=== PATIENT | male | born 1955 | race Caucasian/White ===

== ENCOUNTER 2017-06-24 06:47 | Day surgery (SDC) | payer BC ==
[2017-06-23 13:11] LABS: BASOPHILS % (AUTO) 0.3 % (0-1); EOSINOPHILS # (AUTO) 0.1 X10'3 (0-0.9); EOSINOPHILS % (AUTO) 1.3 % (0-6); HEMATOCRIT 41.8 % (42.0-52.0); HEMOGLOBIN 13.9 g/dl (14.0-17.9); LYMPHOCYTES # (AUTO) 1.9 X10'3 (1.1-4.8); LYMPHOCYTES % (AUTO) 21.1 % (21-51); MEAN CORPUSCULAR HEMOGLOBIN 27.9 PG (27.0-31.0); MEAN CORPUSCULAR HGB CONC 33.3 % (33.0-36.5); MEAN CORPUSCULAR VOLUME 83.6 FL (78-98); MEAN PLATELET VOLUME 8.7 FL (7.4-10.4); MONOCYTES # (AUTO) 0.6 X10'3 (0-0.9); MONOCYTES % (AUTO) 6.5 % (2-12); NEUTROPHILS # (AUTO) 6.3 X10'3 (1.8-7.7); NEUTROPHILS % (AUTO) 70.8 % (42-75); PLATELET COUNT 163 X10'3 (140-440); RED CELL DISTRIBUTION WIDTH 17.1 % (11.5-14.5); WHITE BLOOD COUNT 8.9 X10'3 (4.5-11.0)
[2017-06-23 13:23] LABS: PARTIAL THROMBOPLASTIN TIME 28 SECONDS (22-32); PROTHROMBIN TIME 10.8 SECONDS (9.0-12.0)
[2017-06-23 13:27] LABS: ANION GAP 9 (8-16); BILIRUBIN,TOTAL 1.3 MG/DL (0.1-1.0); BLOOD UREA NITROGEN 22 MG/DL (7-18); BUN/CREATININE RATIO 22.2 (5.4-32.0); CALCIUM 9.4 MG/DL (8.5-10.1); CHLORIDE 106 MMOL/L (99-107); CREATININE 0.99 MG/DL (0.60-1.10); GLUCOSE 118 MG/DL (70-104); POTASSIUM 4.3 MMOL/L (3.5-5.1); SODIUM 142 MMOL/L (135-145); TOTAL CARBON DIOXIDE 27.3 MMOL/L (24-32); eGFR 77 ML/MIN
[2017-06-23 13:28] LABS: ALANINE AMINOTRANSFERASE 40 U/L (12-78); ALBUMIN 3.9 G/DL (3.4-5.0); ALKALINE PHOSPHATASE 102 IU/L (46-116); ASPARTATE AMINO TRANSFERASE 14 U/L (10-37)
[2017-06-24] VITALS (12 sets, daily range): BP systolic 127–163; BP diastolic 64–92
[~2017-06-24] VITALS: Ht 188 cm; Wt 162.7 kg
[2017-06-24] MEDS ORDERED: dextrose ORAL solution 15 GM/59 ML bottle PO PRN ×2 (07:10)
[2017-06-24] MEDS ORDERED: LORazepam 0.5 MG tablet PO PRN (07:10)
[2017-06-24] MEDS ORDERED: normal saline 1000ml 1,000 ML IV SCH (07:10)
[2017-06-24] MEDS ORDERED: diphenhydrAMINE 25mg capsule PO PRN (07:10)
[2017-06-24] MEDS ORDERED: nitroGLYCERIN 0.4mg SUBLingual tab SL PRN (07:10)
[2017-06-24] MEDS ORDERED: dextrose 50%-water 50ml dispensing syringe IV PRN ×2 (07:10)
[2017-06-24] MEDS ORDERED: insulin Lispro (HumaLOG) vial - multi-dose SQ SCH (07:10)
[2017-06-24] MEDS ORDERED: glucagon, human recombinant 1mg kit SUBCUT PRN (07:10)
[2017-06-24] MEDS ORDERED: MESSAGE TO PHARMACY PO ONE (07:10)
[2017-06-24] MEDS ORDERED: PIOG15TA8 PO (09:19)
[2017-06-24] MEDS ORDERED: ATOR10TA87 PO (09:19)
[2017-06-24] MEDS ORDERED: METF500T PO (09:19)
[2017-06-24] MEDS ORDERED: LISI-600 PO (09:19)
[2017-06-24] MEDS ORDERED: AMLO5TAB PO (09:19)
[2017-06-24] MEDS ORDERED: LIDOcaine 1%/PF (10mg/ml) 5ml vial ONE ×2 (12:08→12:48)
[2017-06-24] MEDS ORDERED: iohexol 350MG/ML 100ml bottle IV ONE (12:08)
[2017-06-24] MEDS ORDERED: iohexol 350 MG/ML 50ML vial IV ONE (12:08)
[2017-06-24] MEDS ORDERED: proCHLORperazine 10 MG/2 ml inj ONE (12:36)
[2017-06-24] MEDS ORDERED: fentaNYL/PF 50MCG/1 ML 2ML syringe ONE ×2 (12:37→13:00)
[2017-06-24] MEDS ORDERED: midazolam 2 mg/2 ml injection ONE ×2 (12:37→13:00)
[2017-06-24] MEDS ORDERED: furosemide 40mg/4ml inj ONE (13:01)
[2017-06-24] MEDS ORDERED: enalaprilat dihydrate 2.5mg/2ml vial IV ONE (13:12)
[2017-06-24] MEDS ORDERED: OXAZEpam 15mg capsule PO PRN (15:05)
[2017-06-24] MEDS ORDERED: HYDROcodone/acetaminophen 10/325mg tab PO PRN (15:05)
[2017-06-24] MEDS ORDERED: acetaminophen 325mg tablet PO PRN (15:05)
[2017-06-24] MEDS ORDERED: ondansetron/PF 4mg/2ml inj IV PRN (15:05)
[2017-06-24] MEDS ORDERED: HYDROcodone/acetaminophen 5mg/325mg tablet PO PRN (15:05)
[2017-06-24] MEDS ORDERED: proCHLORperazine 10 MG/2 ml inj IV PRN (15:05)
[2017-06-24] MEDS ORDERED: sodium chloride 0.45% 1,000 ML IV SCH (15:10)
[2017-06-24] MEDS ORDERED: insulin glargine (Lantus) pen - multi-dose SQ SCH (21:00)
== END 2017-06-24 20:00 | disposition home or self-care (01) ==
LOC: SSTAY O 06:47
PROVIDERS: ATTEND Internal Medicine Cardiovascular Disease
DX: I25.10 Atherosclerotic heart disease of native coronary artery without angina pectoris (principal); I50.82 Biventricular heart failure; E11.9 Type 2 diabetes mellitus without complications; E66.01 Morbid (severe) obesity due to excess calories; E78.5 Hyperlipidemia, unspecified; I25.2 Old myocardial infarction; I11.0 Hypertensive heart disease with heart failure; J43.9 Emphysema, unspecified; N40.0 Benign prostatic hyperplasia without lower urinary tract symptoms; F17.210 Nicotine dependence, cigarettes, uncomplicated; Z90.49 Acquired absence of other specified parts of digestive tract; Z85.51 Personal history of malignant neoplasm of bladder; Z98.890 Other specified postprocedural states; Z88.0 Allergy status to penicillin; Z79.84 Long term (current) use of oral hypoglycemic drugs; Z68.42 Body mass index [BMI] 45.0-49.9, adult; Z79.899 Other long term (current) drug therapy
CPT/HCPCS: 36415; 71046; 80053; 82948; 85025; 85610; 85730; 93460; 99152; 99153; A4315; A6257; C1760; C1769; C1894; J0780; J1644; J1940; J2001; J2250; J3010; J7030; Q0163; Q9967; A4620; J1815

== ENCOUNTER 2024-12-14 11:51 | Outpatient (CLI) | payer OTHER ==
[~2024-12-14 11:51] MED LIST: AMLO5TAB PO; ATOR10TA87 PO; LISI20TA28 PO; METF500T PO; PIOG15TA8 PO
--- NOTE | 2024-12-14 13:17 | RADIOLOGY REPORT ---
EXAM: DI HAND, COMPLETE (3VW MIN) CLINICAL INDICATION: SOFT TISSUE DISORDER TECHNIQUE: DI HAND, COMPLETE (3VW MIN) Comparison: None FINDINGS/IMPRESSION: There is no evidence of acute fracture or dislocation. Moderate 1st cmc osteoarthritis. The alignment is anatomical. There is no radiopaque foreign body.
== END 2024-12-14 23:59 | disposition home or self-care (01) ==
LOC: RAD 11:51
PROVIDERS: ATTEND Internal Medicine
DX: M18.12 Unilateral primary osteoarthritis of first carpometacarpal joint, left hand (principal); M79.89 Other specified soft tissue disorders
CPT/HCPCS: 73130